=== PATIENT | male | born 1955 | race Caucasian/White ===

== ENCOUNTER 2017-04-02 06:45 | Day surgery (SDC) | payer OTHER ==
[2017-04-01 12:36] VITALS: BMI 27.1
[2017-04-02] MEDS ORDERED: Fentanyl 100 MCG/2 ML VIAL ONE (08:19)
[2017-04-02] MEDS ORDERED: Midazolam HCl 2 mg/2 ml Vial ONE ×2 (08:19→08:20)
[2017-04-02] MEDS ORDERED: Bupivacaine 0.25% HCL 30 ML VIAL ONE (08:22)
[2017-04-02] MEDS ORDERED: PHENYLEPHRINE-NS 100 MCG/ML 10 ML SYRINGE ONE (08:35)
[2017-04-02] MEDS ORDERED: Ketorolac Tromethamine 30 MG/ML VIAL ONE (08:35)
[2017-04-02] MEDS ORDERED: Propofol 200 MG/20 ML VIAL ONE (08:35)
[2017-04-02] MEDS ORDERED: Ondansetron HCl/PF 4 MG/2 ML Vial ONE (08:35)
[2017-04-02] MEDS ORDERED: Dexamethasone 20 MG/5 ML VIAL ONE (08:35)
[2017-04-02] MEDS ORDERED: Lidocaine 1% PF 5 ML VIAL ONE (08:35)
[2017-04-02] MEDS ORDERED: Lidocaine 2% Jelly 5 ML TUBE ONE (09:08)
--- NOTE | 2017-04-02 12:15 | OP ---
DATE OF PROCEDURE: 04/02/2017 PREOPERATIVE DIAGNOSES: 1. Yhvizxe-bu-[id number]. 2. History of gastric cancer. POSTOPERATIVE DIAGNOSES: 1. Fboyiax-rh-[id number]. 2. History of gastric cancer. PROCEDURES: 1. Anal fistulotomy stage. 2. MediPort removal (removal of tunneled central line with subcutaneous port). SURGEON: Kingston Galindo M.D. ANESTHESIA: General. ESTIMATED BLOOD LOSS: Minimal. COMPLICATIONS: None. SPECIMEN: None. FINDINGS: Previous transsphincteric fistula is now more superficial, able to be finished and Seton removed. TECHNIQUE: The patient was taken to the operating room in supine to the table. After general anest hetic was obtained, his right upper chest was shaved and draped in a sterile fashion. Local anesthe tic infiltrated over the previous incision for MediPort. Sharp incision was made through the old in cision. MediPort was removed. The wound was irrigated and closed using 3-0 Vicryl, 4-0 Monocryl, a nd Dermabond. Next, patient was placed in lithotomy and his perineum was prepped and draped in a st erile fashion. The Seton able to be retracted and the fistula probe to probe the fistula. The fist gordon probe which was previously transsphincteric is now more superficial. With the probe in place, t he fistula is cut completely open. The base of the granulation tissue was firm using cautery. The wound was irrigated. Gelfoam with lidocaine jelly is packed in the anal canal. The patient was en route to recovery in stable condition. All instrument counts, needle counts, and lap counts were co rrect.
== END 2017-04-02 11:05 | disposition home or self-care (01) ==
LOC: SDC 06:45
PROVIDERS: ATTEND Surgery
PROC: 0JPT3WZ Removal of Totally Implantable Vascular Access Device from Trunk Subcutaneous Tissue and Fascia, Percutaneous Approach (ICD-10-PCS; principal; 2017-04-02)
PROC: 0DBQ3ZZ Excision of Anus, Percutaneous Approach (ICD-10-PCS; principal; 2017-04-02)
DX: K60.3 Anal fistula (principal); Z79.899 Other long term (current) drug therapy; Z90.89 Acquired absence of other organs; Z98.890 Other specified postprocedural states; Z85.028 Personal history of other malignant neoplasm of stomach
CPT/HCPCS: J1100; J1885; J2001; J2250; J2405; J2704; J3010; S0020

== ENCOUNTER 2018-03-22 06:00 | Day surgery (SDC) | payer MEDICARE ==
[2018-03-19 10:17] VITALS: BMI 25.1
[2018-03-22] MEDS ORDERED: Lidocaine 2% PF Inj 2 ML VIAL ONE ×2 (06:32→07:51)
[2018-03-22] MEDS ORDERED: Bupivacaine/Epinephrine 0.25% 30 ML VIAL ONE ×2 (06:32→07:51)
[2018-03-22] MEDS ORDERED: Fentanyl 100 MCG/2 ML VIAL ONE (06:40)
[2018-03-22] MEDS ORDERED: CEFAZOLIN/Water 2 GM/20 ML SYRINGE ONE (07:09)
[2018-03-22] MEDS ORDERED: Midazolam HCl 2 mg/2 ml Vial ONE (07:20)
--- NOTE | 2018-03-22 08:45 | OP ---
DATE OF PROCEDURE: 03/22/2018 PREOPERATIVE DIAGNOSIS: Gastric cancer. POSTOPERATIVE DIAGNOSIS: Gastric cancer. PROCEDURE: Tunneled central line subcutaneous port (MediPort, CT injectable). SURGEON: Dr. Kingston Galindo. ANESTHESIA: TIVA, local. ESTIMATED BLOOD LOSS: Minimal. COMPLICATIONS: None. SPECIMEN: None. FINDINGS: The tip of the catheter is at the atriocaval junction. PROCEDURE IN DETAIL: The patient was taken to the operating room and laid supine on the table. Afte r sedation was obtained, bilateral neck and chest is prepped and draped in a sterile fashion. Local anesthetic infiltrated over the right internal jugular vein. Multiple attempts to cannulate the inte rnal jugular vein on the right were unsuccessful. One attempt was attempted on the right subclavian; however, the patient had a very large right clavicle made access difficult. The decision was made t o access the IJ. The left IJ was accessed with a 22-gauge finder needle followed by a Seldinger need le. Wire was passed into the superior vena cava under fluoroscopic guidance. A small carlos was with made at the wire entrance site. A separate 3-cm and made in the left upper chest. Subcutaneous pock et made below the lower incision. Tubing for the MediPort tunneled from the inferior to superior inc ision. Introducer sheath was placed over the wire into the superior vena cava under fluoroscopic renee dance. The dilator and wire removed and the catheter inserted into the sheath, the sheath is peeled away. The tip of the catheter is at the atriocaval junction. MediPort tubing is cut to fit the Medi Port at the lower incision. Tubing was connected to the MediPort, sewn to the chest wall and subcuta neous pocket using Prolene. The MediPort draws blood and flushes without difficulty, it was flushed with a heparin flush. The wounds are irrigated and closed using 3-0 Vicryl, 4-0 Monocryl, and Dermab ond. The patient is en route to recovery in stable condition. All instrument counts, needle counts, lap counts are correct.
[2018-03-22] MEDS ORDERED: HYDROcodone/Acetaminophen 5/325 mg Tablet ONE (09:18)
--- NOTE | 2018-03-22 09:46 | RAD ---
PORTABLE CHEST: HISTORY: MediPort placement. COMPARISON: 07/16/2016. FINDINGS: MediPort-type catheter has been placed through the left jugular. The tip overlies the SVC and appear s in adequate position. The lung garcia are clear. Heart and mediastinum unremarkable. IMPRESSION: MediPort catheter appears in adequate position. No acute finding. POS: [facility]
[2018-03-22] MEDS ORDERED: Dexamethasone 20 MG/5 ML VIAL ONE (10:50)
[2018-03-22] MEDS ORDERED: Lidocaine 1% PF 5 ML VIAL ONE (10:50)
[2018-03-22] MEDS ORDERED: PROPOFOL 200 MG/20 ML VIAL ONE (10:50)
[2018-03-22] MEDS ORDERED: Ondansetron HCl/PF 4 MG/2 ML Vial ONE (10:50)
== END 2018-03-22 09:45 | disposition home or self-care (01) ==
LOC: SDC 06:00
PROVIDERS: ATTEND Surgery
PROC: 02HV33Z Insertion of Infusion Device into Superior Vena Cava, Percutaneous Approach (ICD-10-PCS; principal; 2018-03-22)
DX: C16.9 Malignant neoplasm of stomach, unspecified (principal)
CPT/HCPCS: 36561; 71045; C1788; J1100; J1642; J2001; J2250; J2405; J2704; J3010

== ENCOUNTER 2018-08-02 14:31 | Inpatient (IN) | payer MEDICARE ==
[~2018-08-02 14:31] MED LIST: Iopamidol 370 76% 100 ML VIAL ONE
[2018-08-02 15:30] LABS: #Eosinphils 0.1 thou/uL (0.0-0.7); #Lymphocytes 0.9 thou/uL (1.20-3.40); #Monocytes 0.1 thou/uL (0.11-0.59); #Neutrophils 7.1 thou/uL (1.40-6.50); %Eosinophils 1.3 % (0.0-10.0); %Lymphocytes 10.6 % (21.0-51.0); %Monocytes 0.6 % (0.0-10.0); %Neutrophils 87.4 % (42.0-75.0); Hemoglobin 11.7 g/dL (14.0-18.0); Mean Corpuscular HGB CONC 31.9 g/dL (32.0-36.0); Mean Corpuscular Hemoglobin 28.4 pg (27.0-31.0); Mean Platelet Volume 6.3 fL (7.4-10.4); Platelet Count 448 thou/uL (130-400); RBC Distribution Width 15.8 % (11.5-14.5); Red Blood Cell (RBC) Count 4.12 mill/uL (4.70-6.10); White Blood Cell (WBC) Count 8.2 thou/uL (4.8-10.8)
[2018-08-02 15:52] LABS: ALT (SGPT) 24 U/L (8-55); AST (SGOT) 20 U/L (5-34); Albumin 3.7 g/dL (3.4-4.8); Alkaline Phosphatase 185 U/L (40-150); Anion Gap 15 mmol/L (10-20); BUN (Urea Nitrogen) 13 mg/dL (8.4-25.7); Bilirubin, Total 0.3 mg/dL (0.2-1.2); Calc. Creatinine Clearance 0 mL/min (70-130); Calcium 9.5 mg/dL (7.8-10.44); Carbon Dioxide 24 mmol/L (23-31); Chloride 95 mmol/L (98-107); Estimated GFR-MDRD Greater than 90; Globulin 3.2 g/dL (2.4-3.5); Glucose 112 mg/dL (80-115); Potassium 4.8 mmol/L (3.5-5.1); Protein, Total 6.9 g/dL (5.8-8.1); Sodium 129 mmol/L (136-145)
[2018-08-02 16:09] LABS: Lipase 12 U/L (8-78)
[2018-08-02 17:15] LABS: CK (CPK) 29 U/L (30-200)
[2018-08-02] MEDS ORDERED: Morphine 2 MG/ML SYRINGE ONE ×2 (17:25→22:44)
[2018-08-02] MEDS ORDERED: Metoclopramide HCl 10 MG/2 ML VIAL ONE (17:25)
[2018-08-02] MEDS ORDERED: Morphine 4 MG/ML VIAL ONE ×2 (17:31→18:36)
--- NOTE | 2018-08-02 18:23 | CT ---
CT ABDOMEN AND PELVIS WITH IV CONTRAST: INDICATIONS: History of gastric cancer, status post chemotherapy treatment on , with sever nausea and vomi ting since that period of time. COMPARISON: Prior CT of the abdomen, dated 11/27/2015. FINDINGS: There is an enlarged paraesophageal lymph node on image 4, series 2, measuring 1.5 cm, which is new. There is a 1.3 cm pulmonary nodule, left lower lobe, which is new. There is post surgical change of a partial gastrectomy with a gastroenteric anastomosis seen within t he left upper quadrant of the abdomen. There is worsening adenopathy of the upper retroperitoneum. One of the largest lymph nodes is seen a djacent to the pancreatic head, measuring 2.6 cm. There is an additional centrally necrotic 3 x 5.4 cm aorto-inferior vena cava lymph node. There is an additional 1.4 cm paraaortic lymph node. There is a retro-inferior vena cava lymph node measuring 1.5 cm. No focal hepatic lesion is evident. The spleen, adrenal glands, and kidneys appear within normal jennings its. There are moderate calcifications involving the abdominopelvic vasculature. The prostate is mildly enlarged. The colon demonstrates a mild amount of retained stool. The small bowel is of normal caliber. No free fluid is evident. There is a mixed lytic and sclerotic lesion involving the right ischial tuberosity, with associated p athologic fracture, suspicious for osseous metastatic disease. No additional suspicious osseous lesi on is evident. There is a bony hemangioma within the right aspect of T7. IMPRESSION: 1. Findings of pulmonary and osseous metastatic disease with a pathologic fracture involving the rig ht ischial tuberosity. There is worsening malignant lymphadenopathy of the upper abdomen. 2. Interval partial gastrectomy with a gastroenteric anastamosis. POS: [facility]
[2018-08-02 18:31] LABS: Bilirubin Negative (Negative); Blood, Urine Negative (Negative); Clarity CLEAR (Clear); Glucose, Urine (Dipstick) Negative (Negative); Leukocyte Negative (Negative); Nitrite Negative (Negative); Protein, Urine (Dipstick) Negative (Neg-Trace); Specific Gravity, Urine 1.024 (1.002-1.036); Urobilinogen 0.2 mg/dL (0.2-1.0)
[2018-08-02] MEDS ORDERED: Ondansetron PF 4 MG/2 ML Vial ONE (18:37)
[2018-08-03] MEDS ORDERED: Sodium Chloride 0.9% 1,000 ML IV SCH (01:37)
[2018-08-03] MEDS ORDERED: Ondansetron ODT 4 MG TAB SL PRN (01:37)
[2018-08-03] MEDS ORDERED: Morphine 4 MG/ML VIAL SLOW IVP PRN (01:39)
[2018-08-03 01:47] VITALS: BMI 22.7
[2018-08-03] MEDS: Ondansetron PF 4 MG/2 ML Vial IVP PRN ×2 (03:40→17:08)
[2018-08-03] MEDS ORDERED: OXYCODONE HCL 10 MG PO PRN (06:05)
[2018-08-03] MEDS ORDERED: Non-Formulary Item 1 EACH (Prochlorperazine Maleate [Compazine] 10 MG) PO PRN (06:05)
[2018-08-03] MEDS ORDERED: Acetaminophen 325 MG TAB PO PRN (06:05)
[2018-08-03] MEDS ORDERED: Ondansetron ODT 8 MG TAB PO PRN (06:12)
[2018-08-03] MEDS ORDERED: Prochlorperazine Maleate 5 MG TAB PO PRN (06:14)
[2018-08-03] MEDS ORDERED: PACLITAXEL IVPB SCH ×2 (06:15→06:30)
[2018-08-03] MEDS ORDERED: ONDANSETRON HCL 8 MG PO SCH (06:15)
[2018-08-03] MEDS ORDERED: SODIUM CHLORIDE 0.9% IVPB SCH (06:30)
--- NOTE | 2018-08-03 07:39 | HP ---
PRIMARY CARE PHYSICIAN: Dr. Gianni Gabriel. CODE STATUS: Full code. TIME OF EVALUATION: 10:45 p.m. CHIEF COMPLAINT: Abdominal pain, nausea, and vomiting. HISTORY OF PRESENT ILLNESS: This is a 63-year-old male patient with past medical history of stomach cancer, stomach surgery about 3 years ago, treated with chemo. The last chemo was four days ago. The patient started having severe nausea, vomiting, unable to keep anything down. No clear triggers, no alleviating factors. No other symptoms were present. The abdominal pain is dull when present, may be severe 10/10, needing opioid medication for optimal control. REVIEW OF SYSTEMS: CONSTITUTIONAL: No fever or chills. The patient has generalized weakness. RESPIRATORY: No cough, sputum production or shortness of breath. CARDIOVASCULAR: No chest pain or palpitation. GASTROINTESTINAL: The patient had nausea, vomiting, and severe abdominal pain. [employer]: No dizziness, headache or feeling lightheaded. GENITOURINARY: No burning on urination. EXTREMITIES: No leg swelling. All other systems were reviewed and negative except for the findings mentioned above. PAST MEDICAL HISTORY: Stomach cancer. PAST SURGICAL HISTORY: Stomach surgery on March 31, 2016. SOCIAL HISTORY: Drinks socially. No drugs. No smoking history. FAMILY HISTORY: There were multiple family members with other cancer, lung cancer. KNOWN ALLERGIES: No known drug allergies reported. MEDICATIONS: 1. Capecitabine. 2. [place]. 3. Cyclobenzaprine. 4. Senna. 5. Zofran. 6. Finasteride. 7. Taxol. PHYSICAL EXAMINATION: VITAL SIGNS: On presentation, blood pressure 103/63 with heart rate 93, respiratory rate 17, temperature 98.2, pain 4/10, and oxygen saturation 96% on room air. GENERAL APPEARANCE: The patient is alert, oriented, mild distress due to pain. HEENT: Eyes, normal conjunctivae. Moist oral mucosa. Anicteric. No JVD. RESPIRATORY: Bilateral air entry. No rales. No wheezes. Symmetric expansion. CARDIOVASCULAR: Normal rate, regular rhythm. No murmurs. No gallop. ABDOMEN: Abdomen is soft, tender, bowel sounds are present. MUSCULOSKELETAL: Baseline range of motion and strength. No tenderness. SKIN: Warm and intact. No pallor. No rash. No redness. Peripheral pulses are present. Capillary refill seems to be intact. NEUROLOGIC: No evidence of any new focal weakness. Baseline speech. Cranial nerves seems to be intact. PSYCHIATRIC: The patient is in good mood. No anxiety. Optimal judgment. DIAGNOSTIC DATA: On the CAT scan, finding of one of the osseous and pulmonary metastatic disease with pathologic fracture involving the right ischial tuberosity. There is worsening malignant lymphadenopathy of the lower abdomen, interval partial gastrectomy with gastroenteric anastomosis. LABORATORY DATA: Labs were reviewed. The patient has white count of 9.2, hemoglobin 11.7, MCV 89, platelet count 148. Chemistry; sodium 139, potassium 4.8, carbon dioxide 24, anion gap 15, BUN 13, and creatinine 0.69. GFR was normal. Albumin 3.7. Urine was done, was normal. ASSESSMENT AND PLAN: The patient will be placed in the hospital with following medical problems: 1. Severe abdominal pain secondary to stomach cancer. The patient needed opioid medication for optimal control. We will reconcile home medications. We will give morphine p.r.n. for breakthrough pain. 2. Stomach cancer. The patient is receiving chemo. This is being followed by Oncology as outpatient. No need for acute intervention at this point. 3. Deep venous thrombosis prophylaxis. 4. Hyponatremia. Sodium 139. We will monitor. We will replace electrolytes as needed. Job ID: [id number]
[2018-08-03] MEDS: Senokot 8.6 MG TAB PO SCH ×2 (08:15→20:21)
[2018-08-03] MEDS: Cyclobenzaprine 10 MG TAB PO SCH (08:15)
[2018-08-03] MEDS: Lactinex Tablet PO SCH (08:15)
[2018-08-03] MEDS: oxyCODONE 5 MG TAB PO PRN ×3 (08:16→21:15)
--- NOTE | 2018-08-03 08:16 | PDOC.PN ---
- Subjective Encounter Start Date: 08/03/18 Encounter Start Time: 08:15 Subjective: post chmo, immunotx. abd pain, N/V - Objective Resuscitation Status - Order Detail: 08/03/18 06:05 Resuscitation Status Routine Resuscitation Status: FULL: Full Resuscitation MAR Reviewed: Yes Vital Signs & Weight: Vital Signs (12 hours) Temp Pulse Resp BP Pulse Ox 08/03/18 03:44 98.1 F 85 16 123/70 96 08/03/18 01:32 98.6 F 80 18 120/71 98 Weight Weight 163 lb 2 oz I&O: 08/02/18 08/03/18 08/04/18 06:59 06:59 06:59 Intake Total 500 Balance 500 Result Diagrams: 08/02/18 15:19 08/02/18 15:19 Phys Exam - Physical Examination Neck: no JVD Respiratory: clear to auscultation bilateral Cardiovascular: RRR, no significant murmur Gastrointestinal: soft, positive bowel sounds palpable mass LUQ Musculoskeletal: no edema Dx/Plan (1) Nausea & vomiting Code(s): R11.2 - NAUSEA WITH VOMITING, UNSPECIFIED Status: Acute Qualifiers: Vomiting type: unspecified Vomiting Intractability: intractable Qualified Code(s): R11.2 - Nausea with vomiting, unspecified (2) Abdominal pain Code(s): R10.9 - UNSPECIFIED ABDOMINAL PAIN Status: Acute Qualifiers: Abdominal location: generalized Qualified Code(s): R10.84 - Generalized abdominal pain (3) Primary cancer of stomach with metastasis to other site Code(s): C16.9 - MALIGNANT NEOPLASM OF STOMACH, UNSPECIFIED Status: Chronic (4) Hyponatremia Code(s): E87.1 - HYPO-OSMOLALITY AND HYPONATREMIA Status: Acute - Plan cont iv fluids with NS, monitor Na -: oxycodone for pain -: zofran for nausea -: contact his oncologist * .
[2018-08-03] MEDS: Enoxaparin Sodium 40 MG/0.4 ML SYRINGE SC SCH (08:17)
[2018-08-03] MEDS ORDERED: Senokot 8.6 MG TAB PO SCH (09:00)
[2018-08-03] MEDS ORDERED: CAPECITABINE 150 MG PO SCH ×2 (09:00)
[2018-08-03] MEDS ORDERED: LACTOBACILLUS ACIDOPHILUS PO SCH (09:00)
[2018-08-03] MEDS: Sodium Chloride 0.9% 1,000 ML IV SCH ×3 (11:49→21:16)
[2018-08-03] MEDS: Finasteride 5 MG TAB PO SCH (20:21)
[2018-08-04] MEDS: Morphine 2 MG/ML SYRINGE SLOW IVP PRN ×3 (03:45→20:39)
[2018-08-04 04:19] LABS: #Lymphocytes 0.7 thou/uL (1.20-3.40); #Monocytes 0.2 thou/uL (0.11-0.59); #Neutrophils 2.4 thou/uL (1.40-6.50); %Basophils 0.2 % (0.0-1.0); %Eosinophils 0.9 % (0.0-10.0); %Lymphocytes 20.9 % (21.0-51.0); %Monocytes 5.5 % (0.0-10.0); %Neutrophils 72.6 % (42.0-75.0); Hemoglobin 9.6 g/dL (14.0-18.0); Mean Corpuscular HGB CONC 32.7 g/dL (32.0-36.0); Mean Corpuscular Hemoglobin 29.1 pg (27.0-31.0); Mean Corpuscular Volume 88.9 fL (78.0-98.0); Mean Platelet Volume 6.4 fL (7.4-10.4); Platelet Count 330 thou/uL (130-400); RBC Distribution Width 15.5 % (11.5-14.5); Red Blood Cell (RBC) Count 3.32 mill/uL (4.70-6.10); White Blood Cell (WBC) Count 3.3 thou/uL (4.8-10.8)
[2018-08-04 04:37] LABS: Anion Gap 12 mmol/L (10-20); BUN (Urea Nitrogen) 6 mg/dL (8.4-25.7); Calc. Creatinine Clearance 120 mL/min (70-130); Calcium 8.7 mg/dL (7.8-10.44); Carbon Dioxide 27 mmol/L (23-31); Chloride 95 mmol/L (98-107); Estimated GFR-MDRD Greater than 90; Glucose 99 mg/dL (80-115); Potassium 4.1 mmol/L (3.5-5.1); Sodium 130 mmol/L (136-145)
[2018-08-04] MEDS: Sodium Chloride 0.9% 1,000 ML IV SCH ×3 (06:15→16:56)
--- NOTE | 2018-08-04 07:09 | PDOC.PN ---
- Subjective Encounter Start Date: 08/04/18 Encounter Start Time: 07:08 Subjective: abd pain requiring iv MS - Objective Resuscitation Status - Order Detail: 08/03/18 06:05 Resuscitation Status Routine Resuscitation Status: FULL: Full Resuscitation MAR Reviewed: Yes Vital Signs & Weight: Vital Signs (12 hours) Temp Pulse Resp BP Pulse Ox 08/04/18 03:43 98.4 F 97 16 127/69 94 L 08/03/18 23:35 98.2 F 97 16 121/67 93 L 08/03/18 19:32 98.5 F 96 16 114/69 94 L Weight Weight 167 lb 4 oz I&O: 08/03/18 08/04/18 08/05/18 06:59 06:59 06:59 Intake Total 500 2244 Balance 500 2244 Result Diagrams: 08/04/18 03:50 08/04/18 03:50 Phys Exam - Physical Examination Neck: no JVD Respiratory: clear to auscultation bilateral Cardiovascular: RRR, no significant murmur Gastrointestinal: soft, non-tender, positive bowel sounds Musculoskeletal: no edema Dx/Plan (1) Nausea & vomiting Code(s): R11.2 - NAUSEA WITH VOMITING, UNSPECIFIED Status: Acute Qualifiers: Vomiting type: unspecified Vomiting Intractability: intractable Qualified Code(s): R11.2 - Nausea with vomiting, unspecified (2) Abdominal pain Code(s): R10.9 - UNSPECIFIED ABDOMINAL PAIN Status: Acute Qualifiers: Abdominal location: generalized Qualified Code(s): R10.84 - Generalized abdominal pain (3) 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
[2018-08-04] MEDS: Senokot 8.6 MG TAB PO SCH ×2 (08:31→20:39)
[2018-08-04] MEDS: Enoxaparin Sodium 40 MG/0.4 ML SYRINGE SC SCH (08:31)
[2018-08-04] MEDS: Lactinex Tablet PO SCH (08:31)
[2018-08-04] MEDS: Cyclobenzaprine 10 MG TAB PO SCH (08:31)
[2018-08-04] MEDS: Ondansetron PF 4 MG/2 ML Vial IVP PRN ×3 (08:50→21:01)
[2018-08-04] MEDS: Finasteride 5 MG TAB PO SCH (20:39)
[2018-08-04] MEDS: oxyCODONE 5 MG TAB PO PRN (22:11)
[2018-08-05] MEDS: Sodium Chloride 0.9% 1,000 ML IV SCH (03:02)
[2018-08-05] MEDS: oxyCODONE 5 MG TAB PO PRN (03:56)
[2018-08-05] MEDS: Cyclobenzaprine 10 MG TAB PO SCH (09:30)
[2018-08-05] MEDS: Enoxaparin Sodium 40 MG/0.4 ML SYRINGE SC SCH (09:30)
[2018-08-05] MEDS: Lactinex Tablet PO SCH (09:30)
[2018-08-05] MEDS: Senokot 8.6 MG TAB PO SCH (09:30)
[2018-08-05 09:45] VITALS: BP 123/78; TEMP 97.4
--- NOTE | 2018-08-05 14:51 | DIS ---
DATE OF ADMISSION: 08/02/2018 DATE OF DISCHARGE: 08/05/2018 PRIMARY CARE PHYSICIAN: Dr. Gianni Gabriel. DISCHARGE DISPOSITION: Home. ONCOLOGIST: Dr. Behzad Artis in [place]. FINAL DIAGNOSES: 1. Abdominal pain. 2. Nausea and vomiting. 3. Hyponatremia. 4. 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 DISCHARGE MEDICATIONS: 1. Oxycodone immediate release 5 mg 2 p.o. q.4 hours p.r.n. 2. MiraLAX 17 g in water daily. 3. Proscar 5 mg a day. 4. He also has a prescription for oxycodone 10 mg q.4 hours. 5. Capecitabine 150 mg twice a day. 6. Probiotic 1 a day. 7. Zofran 8 mg q.4 hours p.r.n. 8. Prochlorperazine 10 mg q.6 h. p.r.n. 9. Flexeril 10 mg p.o. b.i.d. ALLERGIES: NO KNOWN DRUG ALLERGIES. HOSPITAL COURSE: The patient referred to [facility] by [facility] for nausea, vomiting, abdominal pain. The patient had a CT of the abdomen done in the emergency room, revealed pulmonary osseous metastatic disease, lymphadenopathy, partial gastrectomy with gastroenteric anastomoses. Initial laboratory; white count 8.2, hemoglobin 11.7, and platelet count 448, 000. Sodium 129, potassium 4.8, BUN 13, creatinine 0.69, alkaline phosphatase 185. The patient was treated with IV fluids, antiemetics, IV morphine, immediate release oxycodone 10 mg q.4 hours was started. The patient is improved to the point where he is ready to go home. He has an appointment with his oncologist in [place] on Thursday. He is being discharged on those medications. CONSULTATIONS: None. PROCEDURES: None. Job ID: [id number] [id number]
== END 2018-08-05 16:21 | disposition home or self-care (01) | DRG 392 ==
LOC: ERS 14:31 → ERHOLD 20:23 → OBSVTOIN 20:23 → ONC 08-03 01:25
PROVIDERS: ADMIT Hospitalist; ATTEND Hospitalist
DX: R10.84 Generalized abdominal pain (principal); C16.9 Malignant neoplasm of stomach, unspecified; E87.1 Hypo-osmolality and hyponatremia; C79.51 Secondary malignant neoplasm of bone; R11.2 Nausea with vomiting, unspecified
CPT/HCPCS: 36415; 74177; 80048; 80053; 81003; 82550; 83605; 83690; 85025; 94760; 96361; 96374; 96375; 96376; J1642; J1650; J2270; J2405; J2765; Q0162; Q9967